=== PATIENT | female | born 1995 | race Caucasian/White ===

== ENCOUNTER 2019-02-26 18:36 | Emergency (ER) | payer MEDICAID ==
[~2019-02-26] VITALS: Ht 154.9 cm; Wt 70.3 kg
--- NOTE | 2019-02-26 18:36 | NUR ---
Pt biba and placed in bed 7.
[2019-02-26 18:41] VITALS: BP 128/88
[2019-02-26 18:48] VITALS: BP 128/88
[2019-02-26] MEDS ORDERED: MORPHINE SULFATE 4 MG/ML SYR IM ONE (18:50)
--- NOTE | 2019-02-26 18:50 | NUR ---
PT BIBA C/O LEFT ANKLE PAIN S/P FALL X 30MINS AGO. PT RATES PAIN 8/10. LEFT ANKLE SHOWS SWELLING. CMS INTACT. PEDAL PULSES PRESENT. NO OBVIOUS DEFORMITY NOTED. PT STATES SHE WAS LOOKING FOR HER KID AND TRIPPED AND FELL ON CONCRETE. VSS. PT DENIES ANY HEAD INJURY WHEN FALLING. ALLERGIES: PENCILLIN PMH: NONE.
--- NOTE | 2019-02-26 19:46 | NUR ---
Patient discharged with v/s stable. Written and verbal after care instructions given and explained. Patient alert, oriented and verbalized understanding of instructions. Wheel Chair Assisted with to car. All questions addressed prior to discharge. ID band removed. Patient advised to follow up with PMD. Rx of IBUPROFEN, NORCO given. Patient educated on indication of medication including possible reaction and side effects. Opportunity to ask questions provided and answered.
== END 2019-02-26 19:46 | disposition home or self-care (01) ==
LOC: MED 18:36
DX: S82.62XA Displaced fracture of lateral malleolus of left fibula, initial encounter for closed fracture (principal); J45.909 Unspecified asthma, uncomplicated; W01.0XXA Fall on same level from slipping, tripping and stumbling without subsequent striking against object, initial encounter; Y93.89 Activity, other specified; Y92.89 Other specified places as the place of occurrence of the external cause; Y99.8 Other external cause status
CPT/HCPCS: 29515; 73610; 96372; 99283; J2270; Q0092